=== PATIENT | male | born 1935 | race Caucasian/White ===

== ENCOUNTER 2018-01-07 13:55 | Outpatient (CLI) | payer MEDICARE, OTHER ==
--- NOTE | 2018-01-07 18:35 | CT ---
CT LUMBAR SPINE WITHOUT CONTRAST: 01/07/18 HISTORY: Lumbar spondylosis. Low back pain times many years. COMPARISON: None. FINDINGS: There is atherosclerosis of the abdominal aorta. There is focal prominence of the abdominal aorta jus t proximal to the bifurcation, measuring 2.8 x 3.0 cm. No periaortic fat stranding. The visualized so lid organs are unremarkable. The visualized alimentary canal is unremarkable. There appears to be posterior fusion hardware at the spinous process of L3 and L4. No perihardware deric cency. There is a prosthesis of the L3-4 disc space. Vacuum disc phenomenon at L1-L2, L2-L3, L4-L5 and L5-S1. Mild leftward curvature of the lumbar spine. Osteophyte formation along the right aspect of the spine at L2, L3, L4. Mild leftward curvature of the lumbar spine. Lumbar spine vertebral body height is maintained. There is no fracture. T12-L1: No significant posterior disc abnormality. No significant central canal stenosis. Neural fora joseph are patent. L1-L2: Vacuum disc phenomenon. Small left paracentral disc bulge. No significant central canal stenos is. Mild bilateral foraminal narrowing. L2-L3: Vacuum disc phenomenon. Broad based disc bulge, ligamentum flavum thickening and facet hypertr ophy result in mild central canal stenosis. Right neural foramen is mildly narrowed. Left neural fora men is patent. L3-L4: Disc prosthesis. Generalized osteophyte ridge results in mild central canal stenosis. Right ne ural foramen is mildly narrowed. Left neural foramen is patent. L4-L5: Vacuum disc phenomenon. There is a broad based disc bulge with a central disc protrusion. Mode rate central canal stenosis. Moderate bilateral foraminal narrowing. L5-S1: Mild central canal stenosis and moderate bilateral foraminal narrowing. Vacuum disc phenomenon is identified. 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 Multilevel significant neural foraminal narrowing. POS: [facility]
== END 2018-01-07 13:56 | disposition home or self-care (01) ==
LOC: BICCT 13:55
PROVIDERS: ATTEND Anesthesiology Pain Medicine
DX: M47.816 Spondylosis without myelopathy or radiculopathy, lumbar region (principal); M48.061 Spinal stenosis, lumbar region without neurogenic claudication; M48.07 Spinal stenosis, lumbosacral region
CPT/HCPCS: 72131